=== PATIENT | female | born 1950 | race Caucasian/White ===

== ENCOUNTER 2019-03-24 08:17 | Outpatient (CLI) | payer OTHER ==
[2019-03-24 08:57] LABS: CHOLESTEROL 167 mg/dL (<200); HDL CHOLESTEROL 63 mg/dL (>55); LDL CHOLESTEROL 90 mg/dL (<100); TRIGLYCERIDES 49 mg/dL (30-150)
[2019-03-25 09:08] LABS: RA LATEX TURBID <10.0 IU/mL (0.0-13.9)
== END 2019-03-24 19:08 | disposition home or self-care (01) ==
LOC: SLB 08:17
PROVIDERS: ATTEND Psychiatry & Neurology Psychiatry
DX: Z00.00 Encounter for general adult medical examination without abnormal findings (principal)
CPT/HCPCS: 36415; 80061; 82607; 83036; 84443-TC; 86431; 86592; 87081

== ENCOUNTER 2019-03-25 15:00 | Outpatient (CLI) | payer OTHER | END 2019-03-25 20:25 | disposition home or self-care (01) | LOC: SCT 15:00 | PROVIDERS: ATTEND Psychiatry & Neurology Psychiatry | DX: M47.812 Spondylosis without myelopathy or radiculopathy, cervical region (principal); M48.8X2 Other specified spondylopathies, cervical region | CPT/HCPCS: 72125-TC ==

== ENCOUNTER → 2019-04-03 | Outpatient (CLI) | payer OTHER | END | disposition home or self-care (01) | LOC: SLB 09:35 | PROVIDERS: ATTEND Psychiatry & Neurology Psychiatry | DX: Z00.00 Encounter for general adult medical examination without abnormal findings (principal) | CPT/HCPCS: 36415; 82607 ==